=== PATIENT | male | born 1995 | race Caucasian/White ===

== ENCOUNTER 2017-10-15 12:44 | Emergency (ER) | payer OTHER, MEDICAID ==
[2017-10-15] MEDS: CEFTRIAXONE 1 GM INJ IM (14:08)
== END 2017-10-15 14:29 | disposition home or self-care (01) ==
LOC: FTE 12:44
DX: S60.512A Abrasion of left hand, initial encounter (principal); V00.131A Fall from skateboard, initial encounter; Y92.9 Unspecified place or not applicable
CPT/HCPCS: 73130; 73130-LT; 96372; 99284-25

== ENCOUNTER 2018-01-20 08:27 | Emergency (ER) | payer OTHER ==
[2018-01-20 09:06] LABS: ADD MAN DIFF? NO
[2018-01-20 09:14] LABS: BASOPHILS % 0.3 % (0.0-2.0); EOSINOPHILS # 0.1 10^3/ul (0.0-0.5); EOSINOPHILS % 0.9 % (0.0-7.0); HEMATOCRIT 46.1 % (42.0-52.0); HEMOGLOBIN 15.9 g/dl (14.0-18.0); LYMPHOCYTES # 2.3 10^3/ul (0.8-2.9); LYMPHOCYTES % 19.7 % (18.0-55.0); MEAN CORPUSCULAR HEMOGLOBIN 31.8 pg (29.0-33.0); MEAN CORPUSCULAR HGB CONC 34.5 g/dl (32.0-37.0); MEAN CORPUSCULAR VOLUME 92.2 fl (72.0-104.0); MONOCYTE # 0.8 10^3/ul (0.3-0.9); MONOCYTES % 7.1 % (0.0-13.0); NEUTROPHIL # 8.3 10^3/ul (1.6-7.5); NEUTROPHILS % 71.7 % (30.0-74.0); PLATELET COUNT 384 10^3/UL (140-415); RED CELL DISTRIBUTION WIDTH 11.9 % (11.5-14.5)
[2018-01-20 09:14] LABS: WHITE BLOOD COUNT 11.6 10^3/ul (4.8-10.8)
[2018-01-20 09:16] LABS: ADD UMIC YES; UR ASCORBIC ACID 20 mg/dL (NEGATIVE); UR BACTERIA FEW /HPF (NONE SEEN); UR BILIRUBIN (Dip) NEGATIVE (NEGATIVE); UR BLOOD (Dip) NEGATIVE (NEGATIVE); UR CLARITY SLIGHTLY CLOUDY (CLEAR); UR COLOR AMBER (YELLOW); UR GLUCOSE (Dip) NEGATIVE (NEGATIVE); UR GRANULAR CAST FEW /HPF (NONE SEEN); UR KETONES (Dip) 1+ mg/dL (NEGATIVE); UR LEUKOCYTE ESTERASE (Dip) NEGATIVE Leu/ul (NEGATIVE); UR MUCUS MANY /HPF (NONE SEEN); UR NITRITE (Dip) NEGATIVE (NEGATIVE); UR RBC 1 /HPF (0-5); UR SPECIFIC GRAVITY (Dip) 1.028 (1.003-1.030); UR TOTAL PROTEIN (Dip) 1+ mg/dl (NEGATIVE); UR UROBILINOGEN (Dip) 1+ mg/dL (NEGATIVE); UR WBC 4 /HPF (0-5)
[2018-01-20 09:25] LABS: BARBITURATES Negative (NEGATIVE); BENZODIAZEPINES Negative (NEGATIVE); CANNABINOIDS Positive (NEGATIVE); COCAINE Negative (NEGATIVE); OPIATES Negative (NEGATIVE)
[2018-01-20 09:37] LABS: ALANINE AMINOTRANSFERASE 45 IU/L (13-69); ALBUMIN 4.9 g/dl (3.3-4.9); ALKALINE PHOSPHATASE 99 IU/L (42-121); ANION GAP 17 (8-16); ASPARTATE AMINO TRANSFERASE 52 IU/L (15-46); BILIRUBIN,INDIRECT 0.9 mg/dl (0-1.1); BILIRUBIN,TOTAL 0.9 mg/dl (0.2-1.3); BLOOD UREA NITROGEN 20 mg/dl (7-20); CARBON DIOXIDE 23 mmol/L (21-31); CHLORIDE 104 mmol/L (97-110); CREATININE 0.98 mg/dl (0.61-1.24); GLUCOSE 98 mg/dl (70-220); POTASSIUM 3.9 mmol/L (3.5-5.1); SODIUM 140 mmol/L (135-144); TOTAL PROTEIN 8.4 g/dl (6.1-8.1)
[2018-01-20 09:38] LABS: ACETAMINOPHEN < 10.0 ug/ml (10.0-30.0); ETHANOL < 10.0 mg/dl; SALICYLATE < 1.0 mg/dl (5.0-30.0)
[2018-01-20 09:44] LABS: AMPHETAMINE/METHAMPHETAMINE POSITIVE (NEGATIVE)
[2018-01-20] MEDS: SOD CHLORIDE 0.9% 1,000 ML IV (10:04)
[2018-01-20] MEDS: LORAZEPAM 2 MG INJ IV (10:04)
== END 2018-01-20 11:35 | disposition home or self-care (01) ==
LOC: E/R 08:27
DX: F15.10 Other stimulant abuse, uncomplicated (principal); F12.10 Cannabis abuse, uncomplicated; F41.9 Anxiety disorder, unspecified; R00.0 Tachycardia, unspecified; R44.2 Other hallucinations; D72.829 Elevated white blood cell count, unspecified; R40.2142 Coma scale, eyes open, spontaneous, at arrival to emergency department; R40.2362 Coma scale, best motor response, obeys commands, at arrival to emergency department; R40.2252 Coma scale, best verbal response, oriented, at arrival to emergency department
CPT/HCPCS: 36415; 80053; 80307; 81001; 85025; 96374; 99284-25

== ENCOUNTER 2018-03-09 22:37 | Emergency (ER) | payer OTHER | END 2018-03-09 23:39 | disposition left against medical advice (07) | LOC: E/R 23:39 | DX: S00.81XA Abrasion of other part of head, initial encounter (principal); S09.90XA Unspecified injury of head, initial encounter; V03.10XA Pedestrian on foot injured in collision with car, pick-up truck or van in traffic accident, initial encounter | CPT/HCPCS: 99282; Z7502 ==

== ENCOUNTER 2018-03-10 00:33 | Emergency (ER) | payer OTHER ==
[2018-03-10] MEDS: NEOMYC/POLYMYX/BACIT 30 GM OINT TOP (02:01)
[2018-03-10] MEDS: SOD CHLORIDE 0.9% 1,000 ML IV (02:02)
[2018-03-10 02:14] LABS: ADD MAN DIFF? NO
[2018-03-10 02:16] LABS: BASOPHILS % 0.2 % (0.0-2.0); EOSINOPHILS % 0.1 % (0.0-7.0); HEMATOCRIT 46.5 % (42.0-52.0); HEMOGLOBIN 15.9 g/dl (14.0-18.0); LYMPHOCYTES # 0.9 10^3/ul (0.8-2.9); LYMPHOCYTES % 5.5 % (18.0-55.0); MEAN CORPUSCULAR HEMOGLOBIN 30.9 pg (29.0-33.0); MEAN CORPUSCULAR HGB CONC 34.2 g/dl (32.0-37.0); MEAN CORPUSCULAR VOLUME 90.3 fl (72.0-104.0); MEAN PLATELET VOLUME 9.4 fl (7.4-10.4); MONOCYTE # 0.9 10^3/ul (0.3-0.9); MONOCYTES % 5.7 % (0.0-13.0); NEUTROPHIL # 14.4 10^3/ul (1.6-7.5); NEUTROPHILS % 88.2 % (30.0-74.0); PLATELET COUNT 319 10^3/UL (140-415); RED BLOOD COUNT 5.15 10^6/ul (4.70-6.10); RED CELL DISTRIBUTION WIDTH 11.8 % (11.5-14.5)
[2018-03-10 02:16] LABS: WHITE BLOOD COUNT 16.3 10^3/ul (4.8-10.8)
[2018-03-10 02:32] LABS: ALANINE AMINOTRANSFERASE 40 IU/L (13-69); ALBUMIN 4.8 g/dl (3.3-4.9); ALKALINE PHOSPHATASE 117 IU/L (42-121); ANION GAP 17 (8-16); ASPARTATE AMINO TRANSFERASE 42 IU/L (15-46); BILIRUBIN,INDIRECT 0.5 mg/dl (0-1.1); BILIRUBIN,TOTAL 0.5 mg/dl (0.2-1.3); BLOOD UREA NITROGEN 13 mg/dl (7-20); CALCIUM 10.2 mg/dl (8.4-10.2); CARBON DIOXIDE 28 mmol/L (21-31); CHLORIDE 100 mmol/L (97-110); CREATININE 0.79 mg/dl (0.61-1.24); GLUCOSE 125 mg/dl (70-220); POTASSIUM 3.9 mmol/L (3.5-5.1); SODIUM 141 mmol/L (135-144); TOTAL PROTEIN 8.9 g/dl (6.1-8.1)
[2018-03-10 02:37] LABS: ETHANOL < 10.0 mg/dl
[2018-03-10 02:44] LABS: INR 0.98; PROTIME 13.1 Sec (11.9-14.9)
[2018-03-10 03:06] LABS: PARTIAL THROMBOPLASTIN TIME 28.9 Sec (25.0-35.0)
[2018-03-10 03:41] LABS: ADD UMIC NO; UR ASCORBIC ACID NEGATIVE (NEGATIVE); UR BILIRUBIN (Dip) NEGATIVE (NEGATIVE); UR BLOOD (Dip) NEGATIVE (NEGATIVE); UR CLARITY CLEAR (CLEAR); UR COLOR YELLOW (YELLOW); UR GLUCOSE (Dip) 1+ mg/dL (NEGATIVE); UR KETONES (Dip) TRACE mg/dL (NEGATIVE); UR LEUKOCYTE ESTERASE (Dip) NEGATIVE Leu/ul (NEGATIVE); UR NITRITE (Dip) NEGATIVE (NEGATIVE); UR SPECIFIC GRAVITY (Dip) 1.012 (1.003-1.030); UR TOTAL PROTEIN (Dip) NEGATIVE (NEGATIVE); UR UROBILINOGEN (Dip) NEGATIVE (NEGATIVE)
[2018-03-10 03:54] LABS: BARBITURATES Negative (NEGATIVE); BENZODIAZEPINES Negative (NEGATIVE); CANNABINOIDS Positive (NEGATIVE); COCAINE Negative (NEGATIVE); OPIATES Negative (NEGATIVE)
[2018-03-10 04:24] LABS: AMPHETAMINE/METHAMPHETAMINE POSITIVE (NEGATIVE)
== END 2018-03-10 05:12 | disposition left against medical advice (07) ==
LOC: FTE 00:33 → E/R 05:12
DX: S02.19XA Other fracture of base of skull, initial encounter for closed fracture (principal); S20.412A Abrasion of left back wall of thorax, initial encounter; S06.6X0A Traumatic subarachnoid hemorrhage without loss of consciousness, initial encounter; V09.20XA Pedestrian injured in traffic accident involving unspecified motor vehicles, initial encounter
CPT/HCPCS: 70130; 70450; 72040; 72170; 80048; 80076; 80307; 81003; 85025; 85610; 85730; 99285-25

== ENCOUNTER 2018-03-15 20:07 | Inpatient (IN) | payer OTHER ==
[2018-03-15] MEDS: ACETAMINOPHEN 500 MG TAB PO (21:28)
[2018-03-15 23:46] LABS: ADD MAN DIFF? NO
[2018-03-15 23:55] LABS: BASOPHILS % 0.4 % (0.0-2.0); EOSINOPHILS # 0.2 10^3/ul (0.0-0.5); EOSINOPHILS % 2.2 % (0.0-7.0); HEMATOCRIT 41.3 % (42.0-52.0); HEMOGLOBIN 14.3 g/dl (14.0-18.0); LYMPHOCYTES # 2.8 10^3/ul (0.8-2.9); LYMPHOCYTES % 25.5 % (18.0-55.0); MEAN CORPUSCULAR HGB CONC 34.6 g/dl (32.0-37.0); MEAN CORPUSCULAR VOLUME 89.6 fl (72.0-104.0); MEAN PLATELET VOLUME 8.9 fl (7.4-10.4); MONOCYTE # 0.7 10^3/ul (0.3-0.9); MONOCYTES % 6.6 % (0.0-13.0); NEUTROPHIL # 7.2 10^3/ul (1.6-7.5); PLATELET COUNT 368 10^3/UL (140-415); RED BLOOD COUNT 4.61 10^6/ul (4.70-6.10); RED CELL DISTRIBUTION WIDTH 11.6 % (11.5-14.5)
[2018-03-16 00:13] LABS: ANION GAP 13 (8-16); BLOOD UREA NITROGEN 10 mg/dl (7-20); CALCIUM 9.7 mg/dl (8.4-10.2); CARBON DIOXIDE 30 mmol/L (21-31); CHLORIDE 104 mmol/L (97-110); CREATININE 0.83 mg/dl (0.61-1.24); GLUCOSE 94 mg/dl (70-220); POTASSIUM 3.9 mmol/L (3.5-5.1); SODIUM 143 mmol/L (135-144)
[2018-03-16 00:19] LABS: INR 1.03; PROTIME 13.6 Sec (11.9-14.9); PT RATIO 1.1
[2018-03-16 00:25] LABS: ETHANOL < 10.0 mg/dl
[2018-03-16] MEDS: LEVETIRACETAM 500 MG (PMX) 100 ML IVPB (00:40)
[2018-03-16 01:09] LABS: BARBITURATES Negative (NEGATIVE); BENZODIAZEPINES Negative (NEGATIVE); CANNABINOIDS Positive (NEGATIVE); COCAINE Negative (NEGATIVE)
[2018-03-16 01:11] LABS: OPIATES Positive (NEGATIVE)
[2018-03-16 01:22] LABS: AMPHETAMINE/METHAMPHETAMINE POSITIVE (NEGATIVE)
[2018-03-16] MEDS ORDERED: ACETAMINOPHEN 650MG/20.3ML CUP PO (05:30)
[2018-03-16] MEDS ORDERED: ALBUTEROL/IPRATROPIUM (NEB) 3 ML AMP NEB (05:30)
[2018-03-16] MEDS: HYDROCODONE/APAP (5/325) TAB PO ×3 (06:39→20:35)
[2018-03-16 08:14] LABS: HEMOGLOBIN A1C 5.1 % (0-5.9)
[2018-03-16] MEDS: FAMOTIDINE 20 MG TAB PO ×2 (09:00→20:33)
[2018-03-16] MEDS: traMADol 50 MG TAB PO (22:30)
[2018-03-17] MEDS: HYDROCODONE/APAP (5/325) TAB PO ×5 (00:43→18:34)
[2018-03-17] MEDS: traMADol 50 MG TAB PO ×2 (08:17→15:48)
[2018-03-17] MEDS: FAMOTIDINE 20 MG TAB PO (08:17)
[2018-03-18] MEDS: HYDROCODONE/APAP (5/325) TAB PO ×3 (02:38→14:06)
[2018-03-18] MEDS: traMADol 50 MG TAB PO (11:26)
== END 2018-03-18 18:35 | disposition home or self-care (01) | DRG 950 ==
LOC: ICU 03-16 00:37 → FTE 20:07 → MS1 03-16 19:19
DX: S06.6X9D Traumatic subarachnoid hemorrhage with loss of consciousness of unspecified duration, subsequent encounter (principal); M54.5 Low back pain; H91.91 Unspecified hearing loss, right ear; F15.10 Other stimulant abuse, uncomplicated
CPT/HCPCS: 36415; 70450; 70551; 72125; 72131; 80048; 80307; 83036; 85025; 85610; 85730; 87081; 99291-25

== ENCOUNTER 2018-03-26 13:33 | Emergency (ER) | payer OTHER ==
[2018-03-26 13:59] LABS: URINE PH (Dip) POC 5.5 (5.0-8.5)
[2018-03-26 13:59] LABS: URINE BLOOD (Dip) POC Negative (NEGATIVE); URINE GLUCOSE (Dip) POC Negative (NEGATIVE); URINE KETONES (Dip) POC Negative (NEGATIVE); URINE LEUKOCYTE EST (Dip) POC Negative (NEGATIVE); URINE NITRITE (Dip) POC Negative (NEGATIVE); URINE TOTAL PROTEIN POC Negative (NEGATIVE)
[2018-03-26] MEDS: AZITHROMYCIN 250 MG TAB PO (14:00)
[2018-03-26] MEDS: CEFTRIAXONE 1 GM INJ IM (14:00)
[2018-03-26] MEDS: LIDOCAINE 1% (MDV) 20 ML INJ SC (14:02)
[2018-03-26 15:03] LABS: BARBITURATES Negative (NEGATIVE); BENZODIAZEPINES Negative (NEGATIVE); CANNABINOIDS Positive (NEGATIVE); COCAINE Negative (NEGATIVE)
[2018-03-26 15:22] LABS: AMPHETAMINE/METHAMPHETAMINE POSITIVE (NEGATIVE); OPIATES Positive (NEGATIVE)
== END 2018-03-26 14:31 | disposition home or self-care (01) ==
LOC: FTE 13:33
DX: R21 Rash and other nonspecific skin eruption (principal)
CPT/HCPCS: 80307; 81003; 87591; 96372; 99284-25